=== PATIENT | male | born 1980 | race Caucasian/White ===

== ENCOUNTER 2017-04-11 13:11 | Emergency (ER) | payer MEDICAID ==
[~2017-04-11] VITALS: Ht 175.3 cm; Wt 82.0 kg
[2017-04-11] MEDS ORDERED: SODIUM CHLORIDE 0.9% 1,000 ML IV ONE (14:24)
[2017-04-11] MEDS ORDERED: FAMOTIDINE 20MG/2ML VIAL IV STA (14:24)
[2017-04-11] MEDS ORDERED: ONDANSETRON HCL 4MG/2ML VIAL IV STA (14:24)
[2017-04-11] MEDS ORDERED: FOLIC ACID 1 MG, THIAMINE HCL 100 MG, MVI, ADULT NO.1 10 ML in DEXTROSE 5% WATER 1,000 ML IV ONE ×4 (14:45)
[2017-04-11 14:54] LABS: HEMATOCRIT. 34.7 % (42.0-52.0); HEMOGLOBIN. 11.8 g/dL (14.0-18.0); MEAN CORPUSCULAR HEMOGLOBIN 29.7 pg (28.0-32.0); MEAN CORPUSCULAR VOLUME 87.1 fL (80.0-94.0); MEAN PLATELET VOLUME 6.5 fl (7.4-10.4); PLATELET 153 x1000/uL (130-400); RED BLOOD CELL COUNT 3.99 mill/uL (4.7-6.1)
[2017-04-11 14:55] LABS: CHLORIDE 107 mEq/L (98-107); INR 1.1
[2017-04-11] MEDS ORDERED: LORAZEPAM 2MG/ML CPJ IV ONE (15:00)
[2017-04-11] MEDS ORDERED: POTASSIUM CHLORIDE 20MEQ TABLET SR PO ONE (15:00)
[2017-04-11 15:04] LABS: CARBON DIOXIDE 26 mEq/L (21-32)
[2017-04-11 15:31] LABS: PLATELET ESTIMATE NORMAL
[2017-04-11 15:43] LABS: CLARITY URINE CLEAR (CLEAR); COLOR URINE DARK YELLOW (YELLOW); KETONES URINE 1+ (NEGATIVE); LEUKOCYTE ESTERASE URINE NEGATIVE (NEGATIVE); NITRITE URINE NEGATIVE (NEGATIVE); OCCULT BLOOD URINE NEGATIVE (NEGATIVE); PH URINE 7.5 (4.5-8.0); PROTEIN URINE TRACE (NEGATIVE); SPECIFIC GRAVITY URINE 1.023 (1.005-1.030)
[2017-04-11 19:12] VITALS: BP 145/85
[2017-06-22] MEDS ORDERED: CHLO25CA10 PO (11:35)
[2017-06-22] MEDS ORDERED: CLIN300C11 PO (11:35)
== END 2017-04-11 19:42 | disposition home or self-care (01) ==
LOC: ER 14:29
DX: S82.831A Other fracture of upper and lower end of right fibula, initial encounter for closed fracture (principal); F10.239 Alcohol dependence with withdrawal, unspecified; E87.6 Hypokalemia; D64.9 Anemia, unspecified; X58.XXXA Exposure to other specified factors, initial encounter; Y92.89 Other specified places as the place of occurrence of the external cause; Y99.8 Other external cause status; Y93.89 Activity, other specified
CPT/HCPCS: 29515; 36415; 73610; 80053; 81001; 83605; 83690; 85025; 85610; 93005; 93971; 96361; 96365; 96375; 99285; J2060; J2405; J3411; J3490; J7030; J7070; Z7610

== ENCOUNTER 2017-06-20 15:47 | Inpatient (IN) | payer MEDICAID, OTHER ==
[~2017-06-20] VITALS: Ht 185.4 cm; Wt 76.7 kg
[2017-06-20] MEDS ORDERED: CYANOCOBALAMIN 1000MCG/ML VIAL IM ONE (18:45)
[2017-06-20] MEDS ORDERED: SODIUM CHLORIDE 0.9% 1,000 ML IV ONE (18:45)
[2017-06-20 19:09] LABS: HEMATOCRIT. 37.6 % (42.0-52.0); HEMOGLOBIN. 12.6 g/dL (14.0-18.0); MEAN CORPUSCULAR HEMOGLOBIN 28.8 pg (28.0-32.0); MEAN PLATELET VOLUME 6.7 fl (7.4-10.4); PLATELET 145 x1000/uL (130-400); RED BLOOD CELL COUNT 4.37 mill/uL (4.7-6.1); RED CELL DISTRIBUTION WIDTH 17.9 % (11.6-14.6)
[2017-06-20 19:28] LABS: CARBON DIOXIDE 28 mEq/L (21-32); CHLORIDE 107 mEq/L (98-107)
[2017-06-20 19:39] LABS: ETHANOL BLOOD 381 mg/dL
[2017-06-20 19:49] LABS: CLARITY URINE CLEAR (CLEAR); COLOR URINE YELLOW (YELLOW); GLUCOSE URINE NEGATIVE (NEGATIVE); KETONES URINE TRACE (NEGATIVE); LEUKOCYTE ESTERASE URINE NEGATIVE (NEGATIVE); NITRITE URINE NEGATIVE (NEGATIVE); OCCULT BLOOD URINE NEGATIVE (NEGATIVE); PH URINE 6.5 (4.5-8.0); PROTEIN URINE TRACE (NEGATIVE); SPECIFIC GRAVITY URINE 1.013 (1.005-1.030)
[2017-06-20 19:56] LABS: PLATELET ESTIMATE NORMAL
[2017-06-20] MEDS ORDERED: CYANOCOBALAMIN 1000MCG/ML VIAL IM SCH (20:15)
[2017-06-20 20:33] LABS: *AMPHETAMINES SCREEN URINE NEGATIVE (NEGATIVE); *BARBITURATES SCREEN URINE NEGATIVE (NEGATIVE); *BENZODIAZEPINES SCREEN URINE NEGATIVE (NEGATIVE); *COCAINE SCREEN URINE NEGATIVE (NEGATIVE); CANNABINOID URINE SCREEN NEGATIVE (NEGATIVE); METHADONE URINE SCREEN NEGATIVE (NEGATIVE); OPIATES URINE SCREEN NEGATIVE (NEGATIVE); PHENCYCLIDINE URINE SCREEN NEGATIVE (NEGATIVE)
[2017-06-20] MEDS ORDERED: KETOROLAC 30MG/ML VIAL IV ONE (23:45)
[2017-06-21] MEDS ORDERED: SODIUM CHLORIDE 0.9% 1,000 ML IV ONE (02:45)
[2017-06-21] MEDS ORDERED: ACETAMINOPHEN WITH CODEINE 300/30MG TABLET PO ONE (04:30)
[2017-06-21 08:50] VITALS: BP 132/87
[2017-06-21] MEDS ORDERED: ACETAMINOPHEN 650MG SUPP PR PRN (11:00)
[2017-06-21] MEDS ORDERED: DIPHENHYDRAMINE 50MG/ML VIAL IV PRN (11:00)
[2017-06-21] MEDS ORDERED: METOCLOPRAMIDE HCL 10MG/2ML VIAL IV NR (11:00)
[2017-06-21] MEDS ORDERED: GUAIFENESIN 200MG/10ML SUGAR FREE UDC PO PRN (11:00)
[2017-06-21] MEDS ORDERED: DOCUSATE SODIUM 100MG CAPSULE PO PRN (11:00)
[2017-06-21] MEDS ORDERED: ACETAMINOPHEN 650MG/20.3ML UDC GT PRN (11:00)
[2017-06-21] MEDS ORDERED: IPRATROPIUM/ALBUTEROL 0.5-3(2.5)MG/3ML NEB INH PRN (11:00)
[2017-06-21] MEDS ORDERED: FAMOTIDINE 20MG TABLET PO ONE (11:00)
[2017-06-21] MEDS ORDERED: NA PHOS,M-B/NA PHOS,DI-BA ENEMA 118ML PR PRN (11:00)
[2017-06-21] MEDS ORDERED: ACETAMINOPHEN 325MG TABLET PO PRN (11:00)
[2017-06-21] MEDS ORDERED: CLONIDINE 0.1MG TABLET PO PRN (11:00)
[2017-06-21] MEDS ORDERED: MAGNESIUM/ALUMINUM HYDROXIDE/SIMETHICONE 30ML UDC PO PRN (11:00)
[2017-06-21 11:23] LABS: HEPATITIS B SURFACE ANTIGEN NEGATIVE
[2017-06-21] MEDS ORDERED: FAMOTIDINE 20MG TABLET PO NR (11:30)
[2017-06-21] MEDS: LORAZEPAM 2MG/ML CPJ IV PRN ×2 (11:39→21:19)
[2017-06-21] MEDS: SODIUM CHLORIDE 0.9% 1,000 ML IV SCH ×2 (11:48→21:20)
[2017-06-21] MEDS: LEVOFLOXACIN 500MG TABLET PO SCH (11:49)
[2017-06-21 11:50] LABS: HEPATITIS B CORE AB IGM NEGATIVE
[2017-06-21] MEDS: ENOXAPARIN 40MG/0.4ML SYR SUBCUT SCH (11:50)
[2017-06-21 12:00] VITALS: BP 120/77
[2017-06-21] MEDS: CHLORDIAZEPOXIDE 25MG CAPSULE PO SCH ×2 (12:50→17:52)
[2017-06-21] MEDS: SODIUM CHLORIDE 0.9% INJ 3ML FLUSH IVF SCH ×2 (14:00→21:20)
[2017-06-21 16:00] VITALS: BP 124/69
[2017-06-21 17:24] LABS: BASOPHILS % 2.2 % (0.0-2.0); EOSINOPHILS % 0.9 % (0.0-5.0); HEMATOCRIT. 35.7 % (42.0-52.0); HEMOGLOBIN. 12.2 g/dL (14.0-18.0); LYMPHOCYTES % 18.2 % (20.0-50.0); MEAN CORPUSCULAR HEMOGLOBIN 29.2 pg (28.0-32.0); MEAN CORPUSCULAR VOLUME 85.3 fL (80.0-94.0); MEAN PLATELET VOLUME 7.6 fl (7.4-10.4); MONOCYTES % 12.1 % (2.0-8.0); NEUTROPHILS % 66.6 % (40.0-76.0); PLATELET 115 x1000/uL (130-400); RED BLOOD CELL COUNT 4.18 mill/uL (4.7-6.1); RED CELL DISTRIBUTION WIDTH 16.9 % (11.6-14.6)
[2017-06-21 17:47] LABS: CARBON DIOXIDE 26 mEq/L (21-32); CHLORIDE 99 mEq/L (98-107); CREATINE KINASE 163 IU/L (39-308); TROPONIN I < 0.02 ng/mL (0.00-0.04)
[2017-06-21 20:00] VITALS: BP 129/84
[2017-06-21 21:00] VITALS: BP 129/84
[2017-06-21] MEDS ORDERED: FAMOTIDINE 20MG TABLET PO SCH (21:00)
[2017-06-21] MEDS ORDERED: POTASSIUM CHLORIDE 20MEQ TABLET SR PO NR (23:43)
[2017-06-22] VITALS: BP 129/82
[2017-06-22 00:34] LABS: CREATINE KINASE 139 IU/L (39-308)
[2017-06-22 00:48] LABS: TROPONIN I < 0.04 ng/mL (0.00-0.04)
[2017-06-22] MEDS: SODIUM CHLORIDE 0.9% 1,000 ML IV SCH (03:48)
[2017-06-22 04:00] VITALS: BP 116/77
[2017-06-22] MEDS: LORAZEPAM 2MG/ML CPJ IV PRN ×2 (04:18→13:29)
[2017-06-22 06:19] LABS: BASOPHILS % 2.1 % (0.0-2.0); EOSINOPHILS % 2.9 % (0.0-5.0); HEMATOCRIT. 35.6 % (42.0-52.0); HEMOGLOBIN. 12.2 g/dL (14.0-18.0); LYMPHOCYTES % 18.6 % (20.0-50.0); MEAN CORPUSCULAR HEMOGLOBIN 29.2 pg (28.0-32.0); MEAN CORPUSCULAR VOLUME 85.4 fL (80.0-94.0); MEAN PLATELET VOLUME 7.6 fl (7.4-10.4); NEUTROPHILS % 64.4 % (40.0-76.0); PLATELET 103 x1000/uL (130-400); RED BLOOD CELL COUNT 4.17 mill/uL (4.7-6.1); RED CELL DISTRIBUTION WIDTH 17.3 % (11.6-14.6)
[2017-06-22] MEDS: SODIUM CHLORIDE 0.9% INJ 3ML FLUSH IVF SCH (07:09)
[2017-06-22 07:22] LABS: CARBON DIOXIDE 28 mEq/L (21-32); CHLORIDE 101 mEq/L (98-107); HDL CHOLESTEROL 72 mg/dL (40-59); LDL CHOLESTEROL 61 mg/dL (5-100)
[2017-06-22 08:00] VITALS: BP 125/86
[2017-06-22] MEDS: CHLORDIAZEPOXIDE 25MG CAPSULE PO SCH ×2 (09:54→12:11)
[2017-06-22] MEDS ORDERED: CLIN300C11 PO (11:35)
[2017-06-22] MEDS ORDERED: CHLO25CA10 PO (11:35)
[2017-06-22] MEDS: LEVOFLOXACIN 500MG TABLET PO SCH (11:43)
[2017-06-22 12:00] VITALS: BP 123/85
[2017-06-22] MEDS: ENOXAPARIN 40MG/0.4ML SYR SUBCUT SCH (12:11)
[2017-06-22 16:29] VITALS: BP 125/86
[2017-06-22 16:35] VITALS: BP 123/85
[2017-06-23 15:28] LABS: HEPATITIS A AB IGM NEGATIVE (NEGATIVE)
== END 2017-06-22 17:00 | disposition home or self-care (01) | DRG 282 ==
LOC: ER 15:47 → ENRESERV 06-21 07:35 → 6EST 06-21 09:26
PROVIDERS: ADMIT Family Medicine; ATTEND Family Medicine
DX: K85.20 Alcohol induced acute pancreatitis without necrosis or infection (principal); E43 Unspecified severe protein-calorie malnutrition; F10.230 Alcohol dependence with withdrawal, uncomplicated; E86.0 Dehydration; F32.9 Major depressive disorder, single episode, unspecified; R79.89 Other specified abnormal findings of blood chemistry; Y90.8 Blood alcohol level of 240 mg/100 ml or more; N45.4 Abscess of epididymis or testis; Z59.0 Homelessness; Z90.49 Acquired absence of other specified parts of digestive tract; Z68.22 Body mass index [BMI] 22.0-22.9, adult; N43.3 Hydrocele, unspecified
CPT/HCPCS: 36415; 74000; 76870; 80048; 80053; 80061; 80305; 81001; 82550; 83036; 83690; 84484; 85025; 85651; 86705; 86709; 86803; 87340; 93005; 93976; 96361; 96372; 96374; 99285; G0482; J1650; J1885; J2060; J2765; J3420; J7030

== ENCOUNTER 2019-07-04 18:38 | Emergency (ER) | payer MEDICAID, MEDICARE ==
[~2019-07-04] VITALS: Ht 170.2 cm; Wt 70.0 kg
[~2019-07-04 18:38] MED LIST: CHLO25CA10 PO; CLIN300C11 PO
[2019-07-04] MEDS ORDERED: ONDANSETRON HCL 4MG/2ML INJ IV STA (19:37)
[2019-07-04] MEDS ORDERED: SODIUM CHLORIDE 0.9% 1,000 ML IV ONE (19:37)
[2019-07-04 20:28] LABS: EOSINOPHILS % 0.9 % (0.0-5.0); HEMATOCRIT. 42.1 % (42.0-52.0); HEMOGLOBIN. 14.3 g/dL (14.0-18.0); LYMPHOCYTES % 30.2 % (20.0-50.0); MEAN CORPUSCULAR HEMOGLOBIN 30.3 pg (28.0-32.0); MEAN PLATELET VOLUME 7.5 fl (7.4-10.4); MONOCYTES % 7.2 % (2.0-8.0); NEUTROPHILS % 60.7 % (40.0-76.0); PLATELET 98 x1000/uL (130-400); RED BLOOD CELL COUNT 4.73 mill/uL (4.7-6.1); RED CELL DISTRIBUTION WIDTH 16.1 % (11.6-14.6)
[2019-07-04 20:31] LABS: CHLORIDE 106 mEq/L (98-107)
[2019-07-04] MEDS ORDERED: POTASSIUM CHLORIDE 20MEQ TABLET SR PO NR (20:45)
[2019-07-04 20:53] LABS: ETHANOL BLOOD 483 mg/dL
[2019-07-04 21:20] LABS: *AMPHETAMINES SCREEN URINE NEGATIVE (NEGATIVE); *BARBITURATES SCREEN URINE NEGATIVE (NEGATIVE)
[2019-07-04 21:21] LABS: *BENZODIAZEPINES SCREEN URINE NEGATIVE (NEGATIVE); *COCAINE SCREEN URINE NEGATIVE (NEGATIVE); CANNABINOID URINE SCREEN NEGATIVE (NEGATIVE); METHADONE URINE SCREEN NEGATIVE (NEGATIVE); OPIATES URINE SCREEN NEGATIVE (NEGATIVE); PHENCYCLIDINE URINE SCREEN NEGATIVE (NEGATIVE)
[2019-07-05] MEDS ORDERED: ONDANSETRON HCL 4MG/2ML INJ IM STA (10:04)
[2019-07-05] MEDS ORDERED: LORAZEPAM 2MG/ML CPJ IM ONE (10:15)
[2019-07-05] MEDS ORDERED: SODIUM CHLORIDE 0.9% 1,000 ML IV ONE (15:45)
[2019-07-05] MEDS ORDERED: CHLORDIAZEPOXIDE 25MG CAPSULE PO ONE (15:45)
[2019-07-06 10:06] VITALS: BP 120/85
== END 2019-07-06 10:54 | disposition home or self-care (01) ==
LOC: ER 18:38
DX: F10.229 Alcohol dependence with intoxication, unspecified (principal); G31.2 Degeneration of nervous system due to alcohol; R10.11 Right upper quadrant pain; F32.9 Major depressive disorder, single episode, unspecified; F17.210 Nicotine dependence, cigarettes, uncomplicated; Y90.8 Blood alcohol level of 240 mg/100 ml or more; Z90.49 Acquired absence of other specified parts of digestive tract; Z59.0 Homelessness; Z75.1 Person awaiting admission to adequate facility elsewhere
CPT/HCPCS: 36415; 80053; 80305; 80307; 80320; 80329; 85025; 96372; 96374; 99283; J2060; J2405; J7030; Z7610; G0480

== ENCOUNTER 2021-07-21 16:08 | Emergency (ER) | payer MEDICARE, MEDICAID ==
[~2021-07-21] VITALS: Ht 175.3 cm; Wt 80.0 kg
[~2021-07-21 16:08] MED LIST changes: -CLIN300C11 PO; +CLIN300C12 PO
[2021-07-21] MEDS ORDERED: ACETAMINOPHEN 325MG TABLET PO STA (17:13)
[2021-07-21 17:40] LABS: BASOPHILS % 1.6 % (0.0-2.0); EOSINOPHILS % 1.2 % (0.0-5.0); HEMATOCRIT. 24.3 % (42.0-52.0); HEMOGLOBIN. 7.7 g/dL (14.0-18.0); LYMPHOCYTES % 16.2 % (20.0-50.0); MEAN CORPUSCULAR HEMOGLOBIN 24.9 pg (28.0-32.0); MEAN CORPUSCULAR VOLUME 78.8 fL (80.0-94.0); MEAN PLATELET VOLUME 6.7 fl (7.4-10.4); MONOCYTES % 11.9 % (2.0-8.0); NEUTROPHILS % 69.1 % (40.0-76.0); PLATELET 306 x1000/uL (130-400); RED BLOOD CELL COUNT 3.09 mill/uL (4.7-6.1); RED CELL DISTRIBUTION WIDTH 21.9 % (11.6-14.6)
[2021-07-21 17:43] LABS: CHLORIDE 107 mEq/L (98-107)
[2021-07-21 17:45] LABS: INR 1.1; PROTHROMBIN TIME 11.7 sec (9.6-11.0)
[2021-07-21 17:47] LABS: ETHANOL BLOOD 148 mg/dL
[2021-07-21] MEDS ORDERED: SULFAMETHOXAZOLE/TRIMETHOPRIM 800/160MG TABLET PO ONE (19:30)
[2021-07-21] MEDS ORDERED: SULF1TAB48 MT (23:11)
[2021-07-21 23:52] VITALS: BP 128/70
[2021-07-22] MEDS ORDERED: POTASSIUM CHLORIDE 20MEQ TABLET SR PO SCH (09:00)
== END 2021-07-21 23:55 | disposition home or self-care (01) ==
LOC: ER 16:08
DX: S61.412A Laceration without foreign body of left hand, initial encounter (principal); Y08.89XA Assault by other specified means, initial encounter; Y93.89 Activity, other specified; Y92.89 Other specified places as the place of occurrence of the external cause; Y99.8 Other external cause status
CPT/HCPCS: 36415; 71045; 73130; 80053; 80320; 85025; 99285; G0480

== ENCOUNTER 2022-02-27 11:03 | Emergency (ER) | payer MEDICAID, MEDICARE, OTHER ==
[~2022-02-27] VITALS: Ht 167.6 cm; Wt 81.0 kg
[~2022-02-27 11:03] MED LIST changes: +SULF1TAB48 MT
[2022-02-27 11:04] VITALS: BP 128/90
== END 2022-02-27 11:25 | disposition left against medical advice (07) ==
LOC: ER 11:03
DX: R56.9 Unspecified convulsions (principal); F32.9 Major depressive disorder, single episode, unspecified; Z90.49 Acquired absence of other specified parts of digestive tract
CPT/HCPCS: 99281

== ENCOUNTER 2022-02-27 12:03 | Inpatient (IN) | payer OTHER ==
[~2022-02-27] VITALS: Ht 180.3 cm; Wt 78.5 kg
[2022-02-27] MEDS ORDERED: LEVETIRACETAM 500MG PREMIX 100 ML IV ONE ×3 (12:15)
[2022-02-27] MEDS ORDERED: SODIUM CHLORIDE 0.9% 1,000 ML IV ONE (12:15)
[2022-02-27] MEDS ORDERED: LORAZEPAM 2MG/ML CPJ IV ONE (12:30)
[2022-02-27] MEDS ORDERED: CHLORDIAZEPOXIDE 25MG CAPSULE PO ONE (12:30)
[2022-02-27 12:37] LABS: BASOPHILS % 3.7 % (0.0-2.0); EOSINOPHILS % 1.7 % (0.0-5.0); HEMATOCRIT. 24.7 % (42.0-52.0); HEMOGLOBIN. 7.7 g/dL (14.0-18.0); LYMPHOCYTES % 37.3 % (20.0-50.0); MEAN CORPUSCULAR HEMOGLOBIN 22.1 pg (28.0-32.0); MEAN CORPUSCULAR VOLUME 71.2 fL (80.0-94.0); MEAN PLATELET VOLUME 6.6 fl (7.4-10.4); MONOCYTES % 8.2 % (2.0-8.0); NEUTROPHILS % 49.1 % (40.0-76.0); PLATELET 109 x1000/uL (130-400); RED BLOOD CELL COUNT 3.47 mill/uL (4.7-6.1); RED CELL DISTRIBUTION WIDTH 19.4 % (11.6-14.6)
[2022-02-27 12:48] LABS: CHLORIDE 104 mEq/L (98-107)
[2022-02-27 13:18] LABS: ETHANOL BLOOD 486 mg/dL
[2022-02-27] MEDS ORDERED: POTASSIUM CHLORIDE 20MEQ/PACKET PO ONE (14:00)
[2022-02-27] MEDS ORDERED: MAGNESIUM 2 G PREMIX 50 ML IV ONE (14:00)
[2022-02-27] MEDS ORDERED: POTASSIUM CHLORIDE INJ 40 MEQ in DEXT 5% WATER 250 ML IV ONE (14:45)
[2022-02-27] MEDS: KCL 20MEQ/100ML PREMIX 100 ML IV SCH ×2 (14:50→17:15)
[2022-02-28] MEDS ORDERED: LORAZEPAM 2MG/ML CPJ IV ONE (01:15)
[2022-02-28] MEDS ORDERED: DEXT 5%/0.45% NACL 1000ML 1,000 ML IV SCH (01:30)
[2022-02-28] MEDS ORDERED: LORAZEPAM 2MG/ML CPJ IV PRN (01:30)
[2022-02-28 08:45] VITALS: BP 129/89
[2022-02-28] MEDS ORDERED: ONDANSETRON HCL 4MG/2ML INJ IV PRN (09:45)
[2022-02-28] MEDS ORDERED: FOLIC ACID 1MG TABLET PO SCH (09:45)
[2022-02-28] MEDS ORDERED: MULTIVITAMINS,THER W-MINERALS TABLET PO SCH (09:45)
[2022-02-28] MEDS ORDERED: THIAMINE HCL 100MG TABLET PO NR (09:45)
[2022-02-28] MEDS ORDERED: FAMOTIDINE 20MG TABLET PO SCH (10:00)
[2022-02-28] MEDS ORDERED: CHLORDIAZEPOXIDE 25MG CAPSULE PO SCH (10:00)
[2022-02-28] MEDS ORDERED: LEVETIRACETAM 500MG TABLET PO SCH (10:00)
== END 2022-02-28 11:42 | disposition left against medical advice (07) | DRG 53 ==
LOC: ER 12:03 → MICUSO 14:48 → 6WST 02-28 09:04
PROVIDERS: ADMIT Internal Medicine; ATTEND Internal Medicine
DX: G40.909 Epilepsy, unspecified, not intractable, without status epilepticus (principal); E87.2 Acidosis; E44.0 Moderate protein-calorie malnutrition; E87.0 Hyperosmolality and hypernatremia; F32.A Depression, unspecified; D64.9 Anemia, unspecified; F17.200 Nicotine dependence, unspecified, uncomplicated; E87.6 Hypokalemia; Z20.822 Contact with and (suspected) exposure to COVID-19; R74.01 Elevation of levels of liver transaminase levels; Z53.29 Procedure and treatment not carried out because of patient's decision for other reasons; F10.129 Alcohol abuse with intoxication, unspecified; Y90.8 Blood alcohol level of 240 mg/100 ml or more; Z79.899 Other long term (current) drug therapy; Z68.24 Body mass index [BMI] 24.0-24.9, adult; Z71.41 Alcohol abuse counseling and surveillance of alcoholic
CPT/HCPCS: 36415; 71045; 80053; 80307; 80320; 80329; 82140; 82962; 83605; 84484; 85025; 87426; 93005; 99291; J1953; J2060; J2405; J3475; J3480; J7030; J7060; G0480